=== PATIENT | female | born 1985 | race Caucasian/White ===

== ENCOUNTER → 2019-05-25 | Outpatient (CLI) | payer OTHER ==
--- NOTE | 2019-05-25 18:00 | RAD ---
PELVIS COMPLETE History: Pelvic cramping. Menorrhagia. Comparison: None. Technique: Grayscale and color Doppler imaging of the pelvis was performed using transabdominal technique. Findings: The uterus measures 10.2 x 4.5 x 6.6 cm in length. Uterus has an unremarkable appearance. The endometrial stripe measures 1.3 mm. Right ovary measures 2.4 x 3.1 x 2.7 cm and is unremarkable. Left ovary measures 3.1 x 2.6 x 2.4 cm and is unremarkable. No adnexal masses are seen. IMPRESSION: 1. Unremarkable pelvic ultrasound. Electronically signed by: Casper Bean DO (05/25/2019 5:57 PM) [id number]
== END | disposition home or self-care (01) ==
LOC: US 14:51
PROVIDERS: ATTEND Obstetrics & Gynecology
DX: N92.0 Excessive and frequent menstruation with regular cycle (principal); N94.6 Dysmenorrhea, unspecified
CPT/HCPCS: 76856